=== PATIENT | male | born 1995 | race Caucasian/White ===

== ENCOUNTER 2017-02-24 12:24 | Emergency (ER) | payer SELFPAY ==
[2017-02-24 12:57] LABS: BASOPHIL 0.2 % (0-2); BILIRUBIN NEGATIVE (NEGATIVE); BLOOD NEGATIVE Ery/uL (NEGATIVE); CLARITY CLEAR (CLEAR); COLOR YELLOW (YELLOW); GLUCOSE (U) NORMAL (NORMAL); HCT 46.5 % (42.0-52.0); HGB 16.3 g/dl (13.2-18.0); KETONE (U) NEGATIVE (NEGATIVE); LEUKOCYTES NEGATIVE Leu/uL (NEGATIVE); MCH 29.3 pg (25.0-31.0); MCHC 35.1 g/dL (32.0-36.0); MCV 83.6 fL (78.0-100.0); MONOCYTE 7.1 % (0-12); MPV 12.7 fL (6.0-9.5); NEUTROPHIL 84.7 % (41-80); NITRITE NEGATIVE (NEGATIVE); PLT 140 K/uL (150-400); PROTEIN NEGATIVE (NEGATIVE); RBC 5.56 M/uL (4.70-6.00); RDW 12.8 % (11.5-14.0); SPECIFIC GRAVITY 1.015 (1.001-1.030); WBC 9.8 K/uL (4.0-10.5)
[2017-02-24 13:16] LABS: ALBUMIN 4.9 g/dL (3.5-5.0); CREATININE 1.1 mg/dL (0.7-1.2); GLOBULIN (CALCULATION) 2.9 g/dL (2.2-4.2); TOTAL PROTEIN 7.8 g/dL (6.4-8.3)
== END 2017-02-24 18:01 | disposition home or self-care (01) ==
LOC: FER 12:24
PROVIDERS: Internal Medicine
DX: K52.9 Noninfective gastroenteritis and colitis, unspecified (principal); Z88.8 Allergy status to other drugs, medicaments and biological substances
CPT/HCPCS: 36415; 80053; 81003; 82150; 82550; 83690; 84443; 85025; 85651; 86308; C9113; J2405; J2765; Q9967